=== PATIENT | male | born 1990 | race African-American/Black ===

== ENCOUNTER 2018-10-17 16:29 | Emergency (ER) | payer OTHER ==
[~2018-10-17] VITALS: Ht 188 cm; Wt 108.9 kg
--- NOTE | 2018-10-17 16:30 | NUR ---
ED Nurse Note: mask given to pt to wear
--- NOTE | 2018-10-17 16:35 | NUR ---
ED Nurse Note: Patient walked into ED due to coughing for 1week, patient reports he coughs out yellow phlegm. patient is alert awake ambulatory. breathing unlabored and even.
--- NOTE | 2018-10-17 16:48 | Emergency Room Report ---
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 Patient reports that he has been coughing for the past month, describing it productive. Denies fever and chills, sore throat, congestion. Reports that he has tried iqum-lep-kfkmeso cough medication with minimal relief. Has an inhaler at home has been using with minimal relief. Denies chest pain, shortness of breath, palpitation, abdominal pain, nausea vomiting. Patient reports that he has been a heavy tobacco smoker for several years. Currently in no distress. Normal oxygenation and respiratory rate Allergies: Coded Allergies: No Known Allergies (Unverified , 10/17/18) Patient History Past Medical History: see triage record Past Surgical History: unable to obtain Pertinent Family History: none Social History: Reports: smoking - Heavy tobacco use Immunizations: UTD Reviewed Nursing Documentation: PMH: Agreed; PSxH: Agreed Nursing Documentation-PMH Past Medical History: No Stated History Review of Systems All Other Systems: negative except mentioned in HPI Physical Exam Vital Signs Date Time Temp Pulse Resp B/P (MAP) Pulse Ox O2 Delivery O2 Flow Rate FiO2 10/17/18 16:32 98.2 91 20 158/84 (108) 98 Room Air Sp02 EP Interpretation: reviewed, normal General Appearance: no apparent distress, alert, GCS 15, non-toxic Head: normocephalic, atraumatic Eyes: bilateral eye normal inspection, bilateral eye PERRL ENT: hearing grossly normal, normal pharynx, no angioedema, normal voice Neck: full range of motion, supple/symm/no masses Respiratory: chest non-tender, lungs clear, normal breath sounds, no rhonchi, no retraction, no accessory muscle use, no wheezing, speaking full sentences Cardiovascular #1: regular rate, rhythm, no edema, no murmur Gastrointestinal: normal bowel sounds, non tender, soft, non-distended, no guarding, no rebound Musculoskeletal: back normal, gait/station normal, normal range of motion, non- tender Neurologic: alert, oriented x3, responsive, motor strength/tone normal, sensory intact, speech normal Psychiatric: judgement/insight normal, memory normal, mood/affect normal, no suicidal/homicidal ideation Skin: no rash Lymphatic: no adenopathy Medical Decision Making PA Attestation All my diagnosis and treatment plans were reviewed ad discussed with my supervising physician Dr. 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 Patient reports that he has been coughing for the past month, describing it productive. Denies fever and chills, sore throat, congestion. Reports that he has tried tihz-ehv-jplcbuh cough medication with minimal relief. Has an inhaler at home has been using with minimal relief. Denies chest pain, shortness of breath, palpitation, abdominal pain, nausea vomiting. Patient reports that he has been a heavy tobacco smoker for several years. Currently in no distress. Normal oxygenation and respiratory rate Ddx considered but are not limited to: bronchitis, PNA, URI viral, bacterial bronchitis Vital signs: are WNL, pt. is afebrile H&PE are most consistent with: Bacterial bronchitis secondary to tobacco smoke ORDERS: Azithromycin, Phenergan, Medrol Dosepak, albuterol inhaler ED INTERVENTIONS: None required at this time. DISCHARGE: At this time pt. is stable for d/c to home. Will provide printed patient care instructions, and any necessary prescriptions. Care plan and follow up instructions have been discussed with the patient prior to discharge. Patient highly advised on smoking cessation and to follow-up with a health information clerk if symptoms continue. No chest x-ray is indicated today as patient has normal vitals and normal lung sounds. Last Vital Signs Date Time Temp Pulse Resp B/P (MAP) Pulse Ox O2 Delivery O2 Flow Rate FiO2 10/17/18 16:32 98.2 91 20 158/84 (108) 98 Room Air Disposition: HOME, SELF-CARE Condition: Stable Scripts Albuterol Sulfate* (PROAIR HFA*) 8.5 Gm Hfa.aer.ad 2 PUFFS INH Q6H, #8.5 GM 0 Refills Prov: Hortensia Nuñez 10/17/18 Methylprednisolone (Methylprednisolone*) 4MG Dspk 4 MG ORAL DIRECTED for 6 Days, #21 EA 0 Refills Day 1: Two tablets before breakfast, one after lunch, one after dinner, and two at bedtime. If started late in the day, take all six tablets at once or divide into two or three doses, unless otherwise directed by prescriber. Day 2: One tablet before breakfast, one after lunch, one after dinner, and two at bedtime Day 3: One tablet before breakfast, one after lunch, one after dinner, and one at bedtime Day 4: One tablet before breakfast, one after lunch, and one at bedtime Day 5: One tablet before breakfast and one at bedtime Day 6: One tablet before breakfast Prov: Hortensia Nuñez 10/17/18 Promethazine Hcl (PROMETHAZINE HCL*) 6.25 Mg/5 Ml Syrup 5 ML ORAL Q6H, #120 ML 0 Refills Prov: Hortensia Nuñez 10/17/18 Azithromycin* (ZITHROMAX*) 250 Mg Tablet 250 MG ORAL DAILY, #6 TAB 0 Refills Take two tables once daily for 1 day, then one tablet once daily for 4 days. Prov: Hortensia Nuñez 10/17/18 Patient Instructions: Acute Bronchitis, [id number] Additional Instructions: Take medication as directed follow-up with your primary care provider worsening symptoms return to the emergency room. Smoking cessation advised as you can develop chronic bronchitis. Hortensia Nuñez Oct 17, 2018 16:48
[2018-10-17] MEDS ORDERED: MEDROL DOSEPAK4 MG ORAL (16:50)
[2018-10-17] MEDS ORDERED: PROAIR HFA8.5 GM INH (16:50)
[2018-10-17] MEDS ORDERED: ZITHROMAX250 MG ORAL (16:50)
[2018-10-17] MEDS ORDERED: PROMETHAZI6.25 MG/1 ORAL (16:50)
[2018-10-17 17:00] VITALS: BP 158/84
--- NOTE | 2018-10-17 17:02 | NUR ---
ER DISCHARGE NOTE: Patient is cleared to be discharged per QUENTIN BASILIO, pt is aox4, on room air, with stable vital signs. pt was given dc and prescription instructions, pt was able to verbalize understanding, pt id band removed without complications. pt is able to ambulate with steady gait. pt took all belongings.
== END 2018-10-17 17:02 | disposition home or self-care (01) ==
LOC: EMR 16:49
DX: J20.9 Acute bronchitis, unspecified (principal); F17.200 Nicotine dependence, unspecified, uncomplicated
CPT/HCPCS: 99283

== ENCOUNTER 2019-04-11 12:01 | Emergency (ER) | payer OTHER ==
[~2019-04-11] VITALS: Ht 188 cm; Wt 122.5 kg
[~2019-04-11 12:01] MED LIST: MEDROL DOSEPAK4 MG ORAL; PROAIR HFA8.5 GM INH; PROMETHAZI6.25 MG/1 ORAL; ZITHROMAX250 MG ORAL
[2019-04-11 12:20] VITALS: BP 130/70
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
[2019-04-11] MEDS ORDERED: IBUPROFEN600 MG ORAL (13:59)
[2019-04-11] MEDS ORDERED: ROBAXIN-750750 MG PO (13:59)
[2019-04-11 14:52] VITALS: BP 123/72
--- NOTE | 2019-04-11 14:52 | NUR ---
ER DISCHARGE NOTE: Patient is cleared to be discharged per ERMD, pt is aox4, on room air, with stable vital signs. pt was given dc and prescription instructions, pt was able to verbalize understanding, pt id band removed. pt is able to ambulate with steady gait. pt took all belongings.
--- NOTE | 2019-04-11 15:48 | Diagnostic Imaging Report ---
EXAM: XR Right Foot Complete, 3 or More Views CLINICAL HISTORY: PAIN TECHNIQUE: Frontal, lateral and oblique views of the right foot. COMPARISON: No relevant prior studies available. FINDINGS: Bones/joints: No acute fracture. Soft tissues: No radiodense foreign body. IMPRESSION: No acute fracture.
== END 2019-04-11 14:54 | disposition home or self-care (01) ==
LOC: EMR 13:30
DX: S39.012A Strain of muscle, fascia and tendon of lower back, initial encounter (principal); S43.402A Unspecified sprain of left shoulder joint, initial encounter; S90.31XA Contusion of right foot, initial encounter; V43.62XA Car passenger injured in collision with other type car in traffic accident, initial encounter; Y92.411 Interstate highway as the place of occurrence of the external cause
CPT/HCPCS: 73630; Z7502; 99283

== ENCOUNTER 2019-09-08 23:39 | Emergency (ER) | payer SELFPAY ==
[~2019-09-08] VITALS: Ht 188 cm; Wt 113.4 kg
[~2019-09-08 23:39] MED LIST changes: +IBUPROFEN600 MG ORAL; +ROBAXIN-750750 MG PO
--- NOTE | 2019-09-09 00:15 | NUR ---
ED Nurse Note: PT WENT FOR CT
[2019-09-09 00:26] VITALS: BP 132/78
[2019-09-09 00:30] LABS: BASOPHILS % (AUTO) 1.8 % (0.0-2.0); EOSINOPHILS % (AUTO) 0.9 % (0.0-3.0); HEMOGLOBIN 17.1 G/DL (14.2-18.0); LYMPHOCYTES % (AUTO) 25.5 % (20.0-45.0); MEAN CORPUSCULAR VOLUME 91 FL (80-99); MONOCYTES % (AUTO) 9.8 % (1.0-10.0); PLATELET COUNT 208 K/UL (150-450); RED BLOOD COUNT 5.58 M/UL (4.70-6.10); RED CELL DISTRIBUTION WIDTH 12.8 % (11.6-14.8); WHITE BLOOD COUNT 9.3 K/UL (4.8-10.8)
[2019-09-09 00:37] LABS: ANION GAP 13 mmol/L (5-15); BLOOD UREA NITROGEN 18 mg/dL (7-18); CALCIUM 9.2 MG/DL (8.5-10.1); CARBON DIOXIDE 26 MMOL/L (21-32); CHLORIDE 102 MMOL/L (98-107); CREATININE 1.8 MG/DL (0.55-1.30); POTASSIUM 3.9 MMOL/L (3.5-5.1); SODIUM 141 MMOL/L (136-145)
[2019-09-09 00:42] LABS: ALANINE AMINOTRANSFERASE 26 U/L (12-78); ALBUMIN/GLOBULIN RATIO 1.6 (1.0-2.7); ALKALINE PHOSPHATASE 56 U/L (46-116); ASPARTATE AMINO TRANSFERASE 39 U/L (15-37); BILIRUBIN,TOTAL 0.5 MG/DL (0.2-1.0)
--- NOTE | 2019-09-09 00:59 | NUR ---
ED Nurse Note: pt returned from CT
--- NOTE | 2019-09-09 01:23 | Diagnostic Imaging Report ---
EXAM: CT Neck Without Intravenous Contrast CLINICAL HISTORY: PAIN TECHNIQUE: Axial computed tomography images of the neck without intravenous contrast. CTDI is 9 mGy and DLP is 231 mGy-cm. One or more of the following dose reduction techniques were used: automated exposure control, adjustment of the mA and/or kV according to patient size, use of iterative reconstruction technique. COMPARISON: No relevant prior studies available. FINDINGS: Oropharynx: Mildly enlarged palatine and lingual tonsil. Hypopharynx: Unremarkable. Larynx: Normal epiglottis. Trachea: Unremarkable. Retropharyngeal space: Unremarkable. Submandibular/parotid glands: Glands are normal in size. Thyroid: No nodules. Bones/joints: No acute fracture. Soft tissues: Unremarkable. Vasculature: Unremarkable. Lymph nodes: No lymphadenopathy. Mastoid air cells: Unremarkable. No mastoid effusion. Lung apices: Unremarkable. IMPRESSION: Mildly enlarged palatine and lingual tonsil. Correlate with pharyngitis/tonsillitis.
--- NOTE | 2019-09-09 01:36 | Diagnostic Imaging Report ---
EXAM: CT Chest Without Intravenous Contrast CLINICAL HISTORY: PAIN TECHNIQUE: Axial computed tomography images of the chest without intravenous contrast. CTDI is 19 mGy and DLP is 755 mGy-cm. One or more of the following dose reduction techniques were used: automated exposure control, adjustment of the mA and/or kV according to patient size, use of iterative reconstruction technique. COMPARISON: No relevant prior studies available. FINDINGS: Lungs: No mass. No consolidation. Pleural space: No pneumothorax. No effusion. Heart: Normal heart size. No pericardial effusion. Bones/joints: No acute fracture. Soft tissues: Unremarkable. Vasculature: Unremarkable. No thoracic aortic aneurysm. Lymph nodes: No enlarged lymph nodes. Upper abdomen: Unremarkable. IMPRESSION: No acute intrathoracic findings.
--- NOTE | 2019-09-09 01:37 | Diagnostic Imaging Report ---
EXAM: CT Head Without Intravenous Contrast CLINICAL HISTORY: PAIN TECHNIQUE: Axial computed tomography images of the head/brain without intravenous contrast. CTDI is 53 mGy and DLP is 1233 mGy-cm. One or more of the following dose reduction techniques were used: automated exposure control, adjustment of the mA and/or kV according to patient size, use of iterative reconstruction technique. COMPARISON: No relevant prior studies available. FINDINGS: Brain: No hemorrhage or mass effect. Ventricles: No hydrocephalus. Bones/joints: Unremarkable. Soft tissues: Unremarkable. Sinuses: Unremarkable. Mastoid air cells: Clear. IMPRESSION: No acute hemorrhage, hydrocephalus, or mass effect.
[2019-09-09] MEDS ORDERED: CEPHALEXIN500 M1 ORAL (01:38)
--- NOTE | 2019-09-09 01:41 | NUR ---
ED Nurse Note: [employer] AT BEDSIDE
--- NOTE | 2019-09-09 01:42 | NUR ---
ED Nurse Note: [employer] OFFICER ANDREW ZAZUETA # [id number]
[2019-09-09 01:43] VITALS: BP 136/63
[2019-09-09 02:00] VITALS: BP 136/63
--- NOTE | 2019-09-09 02:00 | NUR ---
ER DISCHARGE NOTE: Patient is cleared to be discharged per ERMD, pt is aox4, on room air, with stable vital signs. pt was given dc and prescription instructions, pt was able to verbalize understanding, pt id band and iv site removed without complications. pt is able to ambulate with steady gait. pt took all belongings.
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
== END 2019-09-09 02:00 | disposition home or self-care (01) ==
LOC: EMR 23:59
DX: S21.239A Puncture wound without foreign body of unspecified back wall of thorax without penetration into thoracic cavity, initial encounter (principal); X99.9XXA Assault by unspecified sharp object, initial encounter; Y92.9 Unspecified place or not applicable
CPT/HCPCS: 36415; 70450; 70490; 71250; 80053; 85025; 85610; 85730; 96360; 99284; J7030